=== PATIENT | male | born 2000 | race Asian ===

== ENCOUNTER 2021-01-19 11:14 | Emergency (ER) | payer OTHER ==
[~2021-01-19] VITALS: Ht 165.1 cm; Wt 79.5 kg
--- NOTE | 2021-01-19 12:09 | REP ---
INDICATION: trauma. COMPARISON: None. TECHNIQUE: Five views. FINDINGS: Five views of the left knee demonstrate normal bones, joints, and soft tissues. No fracture or subluxation is seen. No opaque foreign body noted. IMPRESSION: Negative left knee series. <Electronically signed by Alirio Holbrook > 01/19/21 [id number]
[2021-01-19 12:39] VITALS: BP 135/76
== END 2021-01-19 12:40 | disposition home or self-care (01) ==
LOC: M ED 11:14
DX: S83.92XA Sprain of unspecified site of left knee, initial encounter (principal); W18.39XA Other fall on same level, initial encounter; Y92.89 Other specified places as the place of occurrence of the external cause; Y99.1 Military activity

== ENCOUNTER 2022-03-05 08:10 | Emergency (ER) | payer OTHER ==
[~2022-03-05] VITALS: Ht 167.6 cm; Wt 79.0 kg
[2022-03-05] MEDS ORDERED: KETOROLAC 30 MG/ML 1ML VIAL IM ONE (11:25)
[2022-03-05 11:31] VITALS: BP 117/69
== END 2022-03-05 11:36 | disposition home or self-care (01) ==
LOC: M ED 08:10
DX: M62.838 Other muscle spasm (principal); M25.562 Pain in left knee; S39.012A Strain of muscle, fascia and tendon of lower back, initial encounter; V49.49XA Driver injured in collision with other motor vehicles in traffic accident, initial encounter; Y92.410 Unspecified street and highway as the place of occurrence of the external cause
CPT/HCPCS: 72125; 73564; 96372; 99283; J1885